=== PATIENT | male | born 1985 | race Caucasian/White ===

== ENCOUNTER 2023-06-20 21:54 | Emergency (ER) | payer OTHER, BC ==
[~2023-06-20] VITALS: Ht 175.3 cm; Wt 102.1 kg
[2023-06-20] MEDS ORDERED: TESTOSTERO200 MG/1 M IM (22:24)
[2023-06-21] MEDS ORDERED: HYDROCODON-ACE1 EA10 PO (00:22)
[2023-06-21 00:36] VITALS: BP 148/90
== END 2023-06-21 00:37 | disposition home or self-care (01) ==
LOC: ED 21:54
DX: S92.425A Nondisplaced fracture of distal phalanx of left great toe, initial encounter for closed fracture (principal); S40.011A Contusion of right shoulder, initial encounter; W19.XXXA Unspecified fall, initial encounter; Y35.811A Legal intervention involving manhandling, law enforcement official injured, initial encounter; Z79.890 Hormone replacement therapy
CPT/HCPCS: 73630; 99283-25; A9270